=== PATIENT | male | born 1955 | race Caucasian/White ===

== ENCOUNTER → 2022-06-13 | Outpatient (CLI) | payer MEDICARE, OTHER ==
[~2022-06-13] MED LIST: ASPI81TA85 PO; AUGM12TA3 PO; AUGM875T27 PO; CIPR250T2 PO; IBUP600T26 PO; LIPI1TAB2 PO; LISI5TAB PO; METO-1 PO; METO100T PO; MILK10SU PO; MULTTAB4 PO; NEXI1CAP3 PO; PANC10CAEC PO; PERC7.5T12 PO; SIME180C PO; TYLE325T5 PO; ULTR50TA PO; ZEST10TA4 PO
== END ==
LOC: M RAD 13:44
PROVIDERS: ATTEND Internal Medicine Endocrinology, Diabetes & Metabolism
DX: R94.6 Abnormal results of thyroid function studies (principal)
CPT/HCPCS: 78012; A9516